=== PATIENT | female | born 1955 | race Caucasian/White ===

== ENCOUNTER 2017-11-05 18:26 | Emergency (ER) | payer OTHER ==
[2017-11-05 18:39] VITALS: BMI 27.4
[2017-11-05 19:03] VITALS: BP 143/74; PULSE 89; TEMP 97.9
--- NOTE | 2017-11-05 19:36 | PDOC ---
History of Present Illness - General History Source: Patient Exam Limitations: No Limitations - History of Present Illness Initial Comments: 11/05/17 19:44 The patient is a 62 year old female, with no significant past medical history, who presents to the emergency department with, scabies rash. As per patient, she was diagnosed with scabies and mites in May 2017. Since then, she has had her apartment exterminated twice, however, been reinfected. She reports to have had similar symptoms when she was infected last time. She complains of itching on her scalp. She denies recent fevers, chills, headache or dizziness. She denies recent nausea, vomit, diarrhea or constipation. She denies recent dysuria, frequency, urgency or hematuria. She denies recent chest pain or shortness of breath. PAST MEDICAL HISTORY: no significant history PAST SURGICAL HISTORY: no significant history FAMILY HISTORY: no pertinent history SOCIAL HISTORY: Pt lives with family and is employed. MEDICATIONS: reviewed ALLERGIES: As per nursing notes ROS: General: No fevers or chills, no weakness, no weight loss HEENT: No change in vision. No sore throat,. No ear pain CardioVascular: No chest pain or shortness of breath Respiratory:No cough, or wheezing. Gastrointestinal: no nausea, vomiting, diarrhea or constipation, No rectal bleeding Genitourinary: No dysuria, hematuria, or frequency Musculoskeletal: No joint or muscle pain or swelling Neurologic: No headache, vertigo, dizziness or loss of consciousness Psychiatric: nor depression Skin: +Rash on the scalp. No easy bruising Endocrine: no increased thirst or abnormal weight change Allergic: no skin or latex allergy All other systems reviewed and normal Physical Exam: GENERAL: The patient is awake, alert, and fully oriented, in no acute distress. HEAD: Normal with no signs of trauma. SCALP: +Rash noted to scalp appears to be noted with scabies. No organisms visible. EYES: Pupils equal, round and reactive to light, extraocular movements intact, sclera anicteric, conjunctiva clear. EXTREMITIES: Normal range of motion, no edema. NEUROLOGICAL: Normal speech, normal gait. PSYCH: Normal mood, normal affect. SKIN: Warm, Dry, normal turgor, no rashes or lesions noted. <Renato Rodrigues - Last Filed: 11/05/17 19:43> - General History Source: Patient Exam Limitations: No Limitations - History of Present Illness Initial Comments: A portion of this note was documented by scribe services under my direction. I have reviewed the details of the note, within reason, and agree with the documentation. The case summary and management plan written by me. Assessment and plan: This is a 62-year-old female who has had recurrent scabies for several months now. Patient lives in a rental and it appears that the source of her repeat infections are the attic of her rental property. Patient was encouraged to find a new place to live and was given prescriptions for ivermectin and promethazine. Patient has a infectious disease person that she can follow-up with but I think the most important thing will be for her to find a new residence. 11/05/17 21:03 <Gamal Olson I - Last Filed: 11/05/17 21:04> - General Chief Complaint: Rash Stated Complaint: RASH Time Seen by Provider: 11/05/17 18:28 Past History <Renato Rodrigues - Last Filed: 11/05/17 19:43> - Past Medical History Anemia: Yes Asthma: No Cancer: No Cardiac Disorders: No CVA: No COPD: No CHF: No DVT: No Dementia: No Diabetes: No GI Disorders: No Disorders: No HTN: No Hypercholesterolemia: No Liver Disease: No Seizures: No Thyroid Disease: No - Surgical History Abdominal Surgery: No Appendectomy: No Cardiac Surgery: No Cholecystectomy: No Lung Surgery: No Neurologic Surgery: No Orthopedic Surgery: No - Suicide/Smoking/Psychosocial Hx Smoking Status: No Smoking History: Never smoked Number of Cigarettes Smoked Daily: 0 Hx Alcohol Use: Yes Drug/Substance Use Hx: No Substance Use Type: Alcohol Hx Substance Use Treatment: No <Gamal Olson I - Last Filed: 11/05/17 21:04> - Past Medical History Allergies/Adverse Reactions: Allergies Allergy/AdvReac Type Severity Reaction Status Date / Time No Known Allergies Allergy Verified 03/08/16 11:55 Home Medications: Ambulatory Orders Dextroamphetamine/Amphetamine [Adderall Xr 20 mg Capsule] 20 mg PO ACDIN Dextroamphetamine/Amphetamine [Adderall Xr 20 mg Capsule] 40 mg PO DAILY Venlafaxine HCl ER [Effexor Xr -] 275 mg PO DAILY 03/08/16 Ibuprofen [Advil -] 600 mg PO TID 03/09/16 Ivermectin 3 mg PO DAILY #7 tablet 11/05/17 Permethrin 5% Topical Cream [Elimite -] 1 applic TP DAILY #7 tube 11/05/17 *Physical Exam - Vital Signs Last Vital Signs Temp Pulse Resp BP Pulse Ox 97.9 F 89 18 143/74 100 11/05/17 18:27 11/05/17 18:27 11/05/17 18:27 11/05/17 18:27 11/05/17 18:27 <Renato Rodrigues - Last Filed: 11/05/17 19:43> - Vital Signs Last Vital Signs Temp Pulse Resp BP Pulse Ox 97.9 F 89 18 143/74 100 11/05/17 18:27 11/05/17 18:27 11/05/17 18:27 11/05/17 18:27 11/05/17 18:27 <Gamal Olson I - Last Filed: 11/05/17 21:04> *DC/Admit/Observation/Transfer - Attestations Scribe Attestion: 11/05/17 19:44 Documentation prepared by Renato Rodrigues, acting as medical claims assistant for Gamal Olson MD. <Renato Rodrigues - Last Filed: 11/05/17 19:43> <Gamal Olson I - Last Filed: 11/05/17 21:04> Diagnosis at time of Disposition: Scabies infestation - Discharge Dispostion Disposition: HOME Condition at time of disposition: Stable - Prescriptions Prescriptions: Ivermectin 3 mg PO DAILY #7 tablet Permethrin 5% Topical Cream [Elimite -] 1 applic TP DAILY #7 tube - Patient Instructions Additional Instructions: Take the ivermectin as prescribed. Apply the permethrine topically as prescribed. Return to the emergency department immediately with ANY new, persistent or worsening symptoms. Continue any medications as previously prescribed by your physician. You should follow up with your primary doctor as soon as possible regarding today's emergency department visit. . Please make sure your doctor reviews the results of your emergency evaluation. Thank you for coming to the Emergency Department today for your care. It was a pleasure to see you today. Please note that your evaluation is INCOMPLETE until you follow-up with your doctor.
== END 2017-11-05 19:53 | disposition home or self-care (01) ==
LOC: FER 18:26
DX: B86 Scabies (principal)
CPT/HCPCS: 99281-25

== ENCOUNTER 2018-07-13 20:39 | Emergency (ER) | payer SELFPAY ==
[2018-07-13 21:24] VITALS: BP 156/95; PULSE 79; TEMP 97.9; BMI 27.4
[2018-07-13] MEDS ORDERED: SILVER SULFADIAZINE 1% TOP CREAM 50 GM JAR TP ONE (22:44)
[2018-07-13] MEDS ORDERED: CEPHALEXIN MONOHYDRATE 500 MG CAPSULE (UD) PO ONE (22:54)
--- NOTE | 2018-07-13 22:55 | PDOC ---
History of Present Illness - General Chief Complaint: Rash Stated Complaint: CHRONIC RASH Time Seen by Provider: 07/13/18 20:45 - History of Present Illness Initial Comments: This 63-year-old woman with a history of depression and chronic rash of her back and extremities presents with exacerbation of her rash. Patient states that the rash was first diagnosed in May, but has been evaluated several times since then. She was told that it was related to bites of bird mites. She states she was also told that it was scabies . She states that the treatment for scabies was not very effective. She had some relief after steroid therapy (both prednisone by mouth and steroid cream). She had been seen by a social work coordinator but subsequently lost insurance coverage and did not have follow-up with her social work coordinator. Recently, she used neem oil on the rash and noticed an increase in inflammation/pain around the individual lesions of the rash. Past History - Past Medical History Allergies/Adverse Reactions: Allergies Allergy/AdvReac Type Severity Reaction Status Date / Time No Known Allergies Allergy Verified 03/08/16 11:55 Home Medications: Ambulatory Orders Dextroamphetamine/Amphetamine [Adderall Xr 20 mg Capsule] 30 mg PO ACDIN Venlafaxine HCl ER [Effexor Xr -] 275 mg PO DAILY 03/08/16 Cephalexin [Keflex] 500 mg PO TID #15 capsule 07/13/18 Triamcinolone 0.5% Ointment [Aristocort 0.5% Ointment -] 1 applic TP BID #1 tube 07/13/18 Anemia: Yes Asthma: No Cancer: No Cardiac Disorders: No CVA: No COPD: No CHF: No DVT: No Dementia: No Diabetes: No GI Disorders: No Disorders: Yes (CONGENITAL HYDRONEPHROSIS) HTN: No Hypercholesterolemia: No Liver Disease: No Psychiatric Problems: Yes (ANXIETY/DEPRESSION) Seizures: No Thyroid Disease: No - Surgical History Abdominal Surgery: No Appendectomy: No Cardiac Surgery: No Cholecystectomy: No Lung Surgery: No Neurologic Surgery: No Orthopedic Surgery: No - Suicide/Smoking/Psychosocial Hx Smoking Status: No Smoking History: Never smoked Number of Cigarettes Smoked Daily: 0 Hx Alcohol Use: Yes Drug/Substance Use Hx: No Substance Use Type: Alcohol Hx Substance Use Treatment: No Review of Systems - Review of Systems Able to Perform ROS?: Yes Comments:: 12 point review of systems is negative except for what is noted in the history of present illness *Physical Exam - Vital Signs Last Vital Signs Temp Pulse Resp BP Pulse Ox 97.9 F 79 18 156/95 100 07/13/18 20:45 07/13/18 20:45 07/13/18 20:45 07/13/18 20:45 07/13/18 20:45 - Physical Exam Comments: GENERAL: Adult female, alert and oriented 3, no acute distress HEAD: Normal with no signs of trauma. EYES: PERRLA, EOMI, sclera anicteric, conjunctiva clear. ENT: Ears normal, nares patent, oropharynx clear without exudates. Dry mucous membranes. NECK: Normal range of motion, supple without lymphadenopathy, JVD, or masses. LUNGS: Breath sounds equal, clear to auscultation bilaterally. No wheezes, and no crackles. HEART:Regular rate and rhythm, normal S1 and S2 without murmur, rub or gallop. ABDOMEN:.normal bowel sounds No guarding,tenderness or rebound.No masses No distention. EXTREMITIES: Normal range of motion, no edema. No clubbing or cyanosis. No erythema, or tenderness. NEUROLOGICAL: Cranial nerves II through XII grossly intact. Normal speech. No focal neurological deficits. MUSCULOSKELETAL: Back non-tender to palpation, no CVA tenderness SKIN: Scattered erythematous, shallow open ulcers of dorsal surface of the forearms bilaterally and upper arms Similar shallow open ulcers also present on the upper back and lower legs ; Several of the forearm ulcers are surrounded by erythematous, mildly edematous, mildly tender inflammation; no purulence/fluctuance present Progress Note - Progress Note Progress Note: This 63-year-old woman with a history of a rash for more than a year presents with increased pain/inflammation around some of the lesions on her arms. The patient had used neem oil on the areas with increased pain and inflammation. Exam as noted It is unclear whether the original rash at the patient has is secondary to scabies or insect bites. Currently, some of the lesions appear to be secondarily infected. Because of this, the patient be started on Keflex 500 mg 3 times a day with first dose given here in the emergency room. Patient stated that in the past, Silvadene cream had been effective for pain relief. A small amount of the Silvadene cream was applied to bilateral forearm rash and sterile gauze applied. Since patient states that this scabies therapy was not effective previously, and that triamcinolone ointment has helped with her discomfort/itching, triamcinolone 0.5 percent ointment will be prescribed twice a day. Patient has been strongly advised to reinstate her insurance coverage. Meanwhile, she should research dermatology clinics in [facility] that have residency in dermatology. Patient states that she has had some contact with [facility] and will pursue follow-up in the near future with their dermatology clinic. She should return to the emergency room if she has worsening edema/erythema/pain in the area of her rash *DC/Admit/Observation/Transfer Diagnosis at time of Disposition: Rash, Cellulitis - Discharge Dispostion Disposition: HOME Condition at time of disposition: Stable - Prescriptions Prescriptions: Cephalexin [Keflex] 500 mg PO TID #15 capsule Triamcinolone 0.5% Ointment [Aristocort 0.5% Ointment -] 1 applic TP BID #1 tube - Referrals - Patient Instructions Printed Discharge Instructions: DI for Rash Additional Instructions: Keflex 500mg 3 X a day for 5 days Triamcinolone ointment twice a day to rash return to ER if pain/redness/swelling worsens followup with Dermatology clinic as discussed - Post Discharge Activity
[2018-07-13] MEDS ORDERED: CEPHALEXIN MONOHYDRATE 500 MG CAPSULE (UD) ONE (22:57)
== END 2018-07-13 23:06 | disposition home or self-care (01) ==
LOC: FER 20:39
DX: R21 Rash and other nonspecific skin eruption (principal); L03.818 Cellulitis of other sites
CPT/HCPCS: 99281-25

== ENCOUNTER 2021-04-25 13:32 | Emergency (ER) | payer OTHER ==
[2021-04-25 13:54] VITALS: TEMP 98.8; BMI 30.2
[2021-04-25] MEDS ORDERED: SODIUM CHLORIDE 0.9% 500 ML INFUS.BAG IV ONE (14:59)
[2021-04-25 15:37] LABS: BASO % 0.4 % (0-2.0); EOS % 0.9 % (0-4.5); HEMATOCRIT 23.3 % (32.4-45.2); LYMPH % 17.7 % (8-40); MCH 30.6 pg (25.7-33.7); MCHC 34.3 g/dl (32.0-36.0); MEAN CELL VOLUME 89.3 fl (80-96); MEAN PLT VOLUME 7.4 fl (7.5-11.1); MONO % 4.3 % (3.8-10.2); NEUT % 76.7 % (42.8-82.8); PLATELET COUNT 428 10^3/uL (134-434); RBC 2.61 M/mm3 (3.60-5.2); RDW 15.1 % (11.6-15.6); WHITE BLOOD COUNT 9.8 K/mm3 (4.0-10.8)
[2021-04-25 15:45] LABS: ANION GAP 9 MMOL/L (8-16); CALCIUM 8.4 mg/dl (8.5-10); CHLORIDE 98 mmol/L (98-107); CO2 26 mmol/L (21-32); GLUCOSE,RANDOM 113 mg/dl (74-106); SODIUM 133 mmol/L (136-145)
[2021-04-25 15:50] LABS: EPITHELIAL CELLS FEW /hpf
[2021-04-25 15:51] LABS: ALBUMIN 3.3 g/dl (3.4-5.0); ALK PHOS 52 U/L (45-117); BILIRUBIN,TOTAL 0.2 mg/dl (0.2-1); CREATININE 0.7 mg/dl (0.55-1.3); SGOT/AST 20 U/L (15-37); SGPT/ALT 21 U/L (13-61); TOT PROT 5.8 g/dl (6.4-8.2)
[2021-04-25 16:54] VITALS: BP 142/86; PULSE 88
== END 2021-04-25 16:56 | disposition home or self-care (01) ==
LOC: FER 13:32
DX: D64.9 Anemia, unspecified (principal); E86.0 Dehydration
CPT/HCPCS: 36415; 71046-TC-FY; 80053; 81003; 81015; 82550; 84484; 85025; 87086; 93005; 99285-25; C9803; U0003; U0005

== ENCOUNTER 2023-10-16 22:03 | Emergency (ER) | payer SELFPAY ==
[2023-10-16 22:18] VITALS: BP 148/88; PULSE 79; RESP 18; TEMP 99; BMI 28.3
[2023-10-16] MEDS ORDERED: predniSONE 20 MG TABLET (UD) PO ONE (22:43)
[2023-10-16] MEDS ORDERED: predniSONE 20 MG TABLET (UD) ONE (22:43)
[2023-10-16] MEDS ORDERED: ACETAMINOPHEN 325 MG TABLET (FP) PO ONE (22:46)
[2023-10-16] MEDS ORDERED: ACETAMINOPHEN 325 MG TABLET (FP) ONE (22:47)
== END 2023-10-16 22:50 | disposition home or self-care (01) ==
LOC: FER 22:03
DX: R21 Rash and other nonspecific skin eruption (principal)
CPT/HCPCS: 99283-25

== ENCOUNTER 2023-10-31 14:52 | Emergency (ER) | payer OTHER ==
[2023-10-31] MEDS ORDERED: ACETAMINOPHEN 500 MG TABLET (FP) PO ONE (15:06)
[2023-10-31] MEDS ORDERED: IBUPROFEN 600 MG TABLET (FP) PO ONE ×2 (15:07→15:40)
[2023-10-31 15:17] VITALS: BP 145/97; PULSE 97; RESP 18; TEMP 98.1; BMI 27.4
[2023-10-31] MEDS ORDERED: ACETAMINOPHEN 325 MG TABLET (FP) ONE (15:40)
== END 2023-10-31 16:32 | disposition home or self-care (01) ==
LOC: FER 14:52
DX: S01.511A Laceration without foreign body of lip, initial encounter (principal); S09.93XA Unspecified injury of face, initial encounter; R51.9 Headache, unspecified; K02.9 Dental caries, unspecified; W00.9XXA Unspecified fall due to ice and snow, initial encounter
CPT/HCPCS: 70450-TC; 70486-TC; 99284-25